=== PATIENT | female | born 1990 | race African-American/Black ===

== ENCOUNTER 2022-12-26 15:39 | Emergency (ER) | payer MEDICAID ==
[~2022-12-26] VITALS: Ht 162.6 cm; Wt 59.0 kg
[2022-12-26 15:45] VITALS: O2SAT 100
[2022-12-26] MEDS ORDERED: SODIUM CHLORIDE 0.9% 1,000 ML IV ONE (16:15)
[2022-12-26 16:43] VITALS: TEMP 98.4
[2022-12-26 16:52] LABS: CHLORIDE 107 mEq/L (98-107)
[2022-12-26 17:03] LABS: HCG SCREEN NEGATIVE
[2022-12-26 17:45] LABS: HEMATOCRIT. 27.5 % (36.0-48.0); HEMOGLOBIN. 8.7 g/dL (12.0-16.0); MEAN CORPUSCULAR HEMOGLOBIN 29.2 pg (28.0-32.0); MEAN PLATELET VOLUME 8.6 fl (7.4-10.4); RED BLOOD CELL COUNT 2.99 mill/uL (4.2-5.4); RED CELL DISTRIBUTION WIDTH 19.8 % (11.6-14.6)
[2022-12-26 17:54] LABS: PLATELET 13 x1000/uL (130-400)
[2022-12-26] MEDS ORDERED: OXYCODONE HCL/ACETAMINOPHEN 5/325MG TABLET PO SCH (18:00)
[2022-12-26 18:25] VITALS: BP 144/68; PULSE 113; RESP 29
[2022-12-26 18:54] LABS: NUCLEATED RED BLOOD CELLS 21 /100 WBC
[2022-12-26 18:58] LABS: PLATELET ESTIMATE MARKEDL
== END 2022-12-26 18:30 | disposition left against medical advice (07) ==
LOC: ER 15:39
DX: R55 Syncope and collapse (principal)
CPT/HCPCS: 99284; 96360; 70450; 96361; 80053; 84703; 85025; 84484; 36415; J7030

== ENCOUNTER 2023-01-22 03:25 | Emergency (ER) | payer MEDICAID ==
[~2023-01-22] VITALS: Ht 172.7 cm; Wt 68.0 kg
[2023-01-22 03:36] VITALS: O2SAT 95
[2023-01-22 07:16] LABS: CHLORIDE 106 mEq/L (98-107); INDEX HEMOLYSI 1 (1-3); INDEX ICTERIC 2 (1-4); INDEX LIPEMIC 1 (1-3); POTASSIUM 3.3 mEq/L (3.5-5.1); SODIUM 133 mEq/L (136-145)
[2023-01-22 07:22] LABS: MEAN CORPUSCULAR HEMOGLOBIN 30.5 pg (28.0-32.0); MEAN CORPUSCULAR HGB CONC 34.7 g/dL (31.0-37.0); MEAN CORPUSCULAR VOLUME 87.8 fL (81.0-99.0); MEAN PLATELET VOLUME 11.4 fl (7.4-10.4); RED BLOOD CELL COUNT 2.96 mill/uL (4.2-5.4); RED CELL DISTRIBUTION WIDTH 15.5 % (11.6-14.6); WHITE BLOOD COUNT 9.8 x1000/uL (4.5-11.0)
[2023-01-22 07:27] LABS: D-DIMER 9.8 mg/L FEU (<0.50); INR 1.2; PARTIAL THROMBOPLASTIN TIME 28.2 sec (23.4-31.0); PROTHROMBIN TIME 12.4 sec (9.6-11.0)
[2023-01-22 07:28] LABS: DIFFERENTIAL COMMENT 1; PLATELET 17 x1000/uL (130-400)
[2023-01-22 07:33] LABS: ALANINE AMINOTRANSFERASE 40 IU/L (13-61); ALBUMIN 2.9 g/dL (3.4-5.0); ASPARTATE AMINOTRANSFERASE 108 IU/L (15-37); BILIRUBIN TOTAL 3.5 mg/dL (0.1-1.0); CALCIUM 7.8 mg/dL (8.5-10.1); CARBON DIOXIDE 17 mEq/L (21-32); CREATININE 0.7 mg/dL (0.6-1.3); GLUCOSE 133 mg/dL (70-105); NT PRO B-TYPE NATRIURETIC PEP 2073 pg/mL (5-125); PROTEIN TOTAL 7.9 g/dL (6.0-8.3); TROPONIN I HIGH SENSITIVITY 52 ng/L (<54); UREA NITROGEN BLOOD 7 mg/dL (7-21)
[2023-01-22 08:15] LABS: NUCLEATED RED BLOOD CELLS 1 /100 WBC; PLATELET ESTIMATE MARKEDLY DECREASED
[2023-01-22 09:29] LABS: CLARITY URINE CLEAR (CLEAR); COLOR URINE DARK YELLOW (YELLOW); GLUCOSE URINE NEGATIVE (NEGATIVE); KETONES URINE 2+ (NEGATIVE); LEUKOCYTE ESTERASE URINE NEGATIVE (NEGATIVE); NITRITE URINE NEGATIVE (NEGATIVE); OCCULT BLOOD URINE 1+ (NEGATIVE); PROTEIN URINE 2+ (NEGATIVE); SPECIFIC GRAVITY URINE 1.016 (1.005-1.030); UROBILINOGEN URINE >8.0 E.U./dL (0.2-1.0)
[2023-01-22 09:32] LABS: SQUAMOUS EPITHELIAL CELL URINE 1+ /lpf (RARE/1+); WBC URINE 0-2 /hpf (0-2)
[2023-01-22 10:12] LABS: BACTERIA URINE TRACE; YEAST URINE NONE SEEN
[2023-01-22] MEDS ORDERED: IOHEXOL-350 100 ML BOTTLE ONE (10:16)
[2023-01-22] MEDS ORDERED: LORAZEPAM 0.5MG TABLET PO ONE (14:15)
[2023-01-22 18:55] VITALS: BP 108/62; PULSE 130; RESP 18; TEMP 98.5
[2023-01-22] MEDS ORDERED: ACETAMINOPHEN 325MG TABLET PO PRN (19:30)
[2023-01-22] MEDS ORDERED: TRAMADOL 50MG TABLET PO PRN (19:30)
[2023-01-22] MEDS ORDERED: IPRATROPIUM/ALBUTEROL 0.5-3(2.5)MG/3ML NEB HHN PRN (19:30)
[2023-01-22] MEDS ORDERED: ONDANSETRON HCL 4MG/2ML INJ IV PRN (19:30)
[2023-01-22] MEDS ORDERED: DIPHENHYDRAMINE 50MG/ML VIAL IV PRN (19:30)
[2023-01-22] MEDS ORDERED: DOCUSATE SODIUM 100MG CAPSULE PO PRN (19:30)
[2023-01-22] MEDS ORDERED: HYDROCODONE/ACETAMINOPHEN 5/325MG TABLET PO PRN (19:30)
[2023-01-22] MEDS ORDERED: GUAIFENESIN 200MG/10ML SUGAR FREE UDC PO PRN (19:30)
[2023-01-22] MEDS ORDERED: NALOXONE HCL 0.4MG/ML VIAL IV PRN (19:30)
[2023-01-22] MEDS ORDERED: DEXT 5%/0.45% NACL KCL 10MEQ/L 1,000 ML IV SCH (20:30)
[2023-01-23] MEDS ORDERED: MULTIVITAMINS,THER W-MINERALS TABLET PO SCH (09:00)
== END 2023-01-22 19:29 | disposition left against medical advice (07) ==
LOC: ER 03:25 → CANBEDREQ 01-24 22:08
DX: C79.81 Secondary malignant neoplasm of breast (principal); R04.2 Hemoptysis; R94.31 Abnormal electrocardiogram [ECG] [EKG]; Z85.89 Personal history of malignant neoplasm of other organs and systems
CPT/HCPCS: 80053; 81003; 81025; 83880; 85025; 85379; 85610; 85730; 86850; 86900; 86901; 84484; 87804 ×2; 36415; 71045; 71275; 93005; 99285; 87426; Q9967; C9803; Z7610 ×3